=== PATIENT | female | born 1965 | race Two or more races ===

== ENCOUNTER 2019-05-22 10:38 | Outpatient (CLI) | payer OTHER | END 2019-05-22 15:00 | disposition home or self-care (01) | LOC: LAB 10:38 | DX: K57.20 Diverticulitis of large intestine with perforation and abscess without bleeding (principal) ==

== ENCOUNTER 2019-05-22 12:33 | Outpatient (CLI) | payer OTHER | END 2019-05-22 12:39 | disposition home or self-care (01) | LOC: TOM 12:33 | DX: K57.20 Diverticulitis of large intestine with perforation and abscess without bleeding (principal) ==

== ENCOUNTER 2020-06-02 08:40 | Day surgery (SDC) | payer OTHER | END 2020-06-02 13:30 | disposition home or self-care (01) | LOC: AMB-ENDOS 08:40 | PROVIDERS: ATTEND Surgery | DX: D13.0 Benign neoplasm of esophagus (principal); D13.2 Benign neoplasm of duodenum; K29.60 Other gastritis without bleeding; K44.9 Diaphragmatic hernia without obstruction or gangrene ==